=== PATIENT | male | born 2005 | race Caucasian/White ===

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

== ENCOUNTER 2024-04-30 23:03 | Emergency (ER) | payer BC, SELFPAY ==
[2024-04-30 23:33] VITALS: BP 128/66; PULSE 120; RESP 20; TEMP 36.6; O2SAT 100; BMI 22.4
[2024-04-30] MEDS: ONDANSETRON 2 MG/ML inj 4 MG IVP (23:52)
[2024-04-30] MEDS: 0.9 % SODIUM CHLORIDE 500 ML 500 ML IV (23:52)
[2024-04-30 23:56] LABS: Basophils Percent Auto 0.2 % (0.0-3.0); Eosinophils Percent Auto 0.7 % (0.0-7.0); Hematocrit 47.7 % (37.0-53.0); Hemoglobin* 16.1 gm/dL (13.5-17.5); Immature Granulocytes Pct Auto 0.6 %; Lymphocytes Percent Auto 9.9 % (20-44); Mean Corpuscular HGB Conc 34 gm/dL (32-36); Mean Corpuscular Hemoglobin 31 pg (26-34); Mean Corpuscular Volume 90 fL (80-100); Monocytes Percent Auto 8.6 % (0.0-11.0); Platelet Count* 260 K/uL (140-440); RDW Coefficient of Variation % 11.9 % (11.5-15.5); Red Blood Count 5.28 m/uL (4.30-5.90); White Blood Count* 17.36 K/uL (4.50-11.00)
[2024-04-30 23:57] LABS: Slide Review Reflex No
--- NOTE | 2024-05-01 00:04 | ED.GENADULT ---
HPI - General Adult General Chief complaint: Nausea/Vomiting Stated complaint: vomiting Time Seen by Provider: 04/30/24 23:53 Source: patient and family Mode of arrival: ambulatory Limitations: no limitations History of Present Illness HPI narrative: 18-year-old male presents to the emergency department with nausea vomiting and diarrhea for the past 3 hours. No fever. No injury or trauma. Does admit that he does get spills of recurrent vomiting. He does use marijuana 2-3 times daily. No prior history of pancreatitis, denies excessive alcohol intake. No prior abdominal surgeries. No hematemesis or bloody stools. Did not try any interventions at home prior to coming to ED. feels chilled. no abdominal pain. No other systemic symptoms. Reports that his past medical history is benign, no major long-term health problems. Denies use of any prescription medications. No allergies. 2-3 times daily THC user. ROS is notable for the GI symptoms as above only, otherwise denies times 12 systems. Related Data Home Medications ?Medication ?Instructions ?Recorded ?Confirmed No Known Home Medications 12/17/22 12/17/22 Allergies Allergy/AdvReac Type Severity Reaction Status Date / Time No Known Drug Allergies Allergy Verified 12/17/22 16:57 PFSH PFSH Social History Smoking Status: Never smoker Do you use any of these nicotine containing products: None Second hand tobacco smoke exposure: No How often do you have a drink containing alcohol: never AUDIT-C Alcohol total score: 0 Non-prescribed substance use: denies use service: No Exam Const: Vital Signs, click to edit/add: Vital Signs - 24 hr 04/30/24 23:33 Temperature 97.8 F Pulse Rate [Left P ulse Oximeter] 120 H Respiratory Rate 20 Blood Pressure [Ri ght Upper Arm] 128/66 Pulse Oximetry 100 Oxygen Delivery Me thod Room Air Documenting provider has reviewed patient's vital signs: yes Common normals: alert Other: Lips appear dry, slightly pale. Answers questions appropriately. HENMT: Common normals: normocephalic Head and scalp: normocephalic Face and sinus: normal facial exam Mouth: oral and palatal mucosa normal Throat: posterior oropharynx normal Eye: Common normals: conjunctivae normal General eye: normal appearance of both eyes Conjunctiva: conjunctiva(e) normal Neck & C-Spine: Common normals: no lymphadenopathy General: normal visual inspection Resp: Common normals: normal respiratory effort, no use of accessory muscles and clear to auscultation bilaterally Effort & inspection: able to speak in complete sentences Auscultation: clear to auscultation bilaterally Cardio: Common normals: regular rate, regular rhythm, S1 normal heart sound, S2 normal heart sound and no murmurs Rate: regular rate Rhythm: regular rhythm Heart sounds: S1 normal and S2 normal GI: Common normals: Normal to inspection, nondistended, normoactive bowel sounds present, soft to palpation, non-tender, no hepatosplenomegaly and no masses Palpation: soft and no hepatosplenomegaly Back & Pelvis: Common normals: thoracic and lumbar spine normal to inspection Extremity: Common normals: normal to inspection, normal capillary refill and no pedal edema Neuro: Sensorium/orientation: alert Speech: speech normal Motor exam: no movement abnormalities noted Psych: Common normals: thought process normal Appearance: grossly normal Thought process: normal thought process Attention/concentration: attention grossly intact Insight: insight good Judgement: judgment good Skin: Common normals: no rashes or lesions noted General skin exam: no rashes or lesions noted Course Course ED Course: 18-year-old male with nausea and vomiting. History of occasional severe vomiting episodes that are suspicious for underlying cyclic vomiting syndrome. He reports that this episode feels different and admittedly the diarrhea does make me question if he may have acute gastroenteritis rather than an episode of cyclic vomiting syndrome. Labs are ordered prior to the start of my shift. Will await these. Normal saline 500 mL bolus is ordered. I do not think this will quite be enough as he does appear dry. I will add 500 mL of lactated Ringer's after the normal saline is complete. No select had influenza swabs, olanzapine. Zofran has already been ordered. Await findings. Reevaluation(s) Time of Reevaluation #1: 01:37 Reevaluation #1: Patient sleeping and feeling much better after the olanzapine. Two bags of fluid given, Zofran and the olanzapine. He has not had any further vomiting. No retching. Patient and father counseled that it is difficult to tell if this is gastroenteritis or cyclic vomiting syndrome but it is very suspicious for cyclic vomiting syndrome. Rationale discussed. Discussed with the only true treatment for that condition is abstaining from THC for at least 8 weeks. If this is gastroenteritis, continue pushing fluids, prescription for Zofran given. Counseled that if this is not helpful it is more suspicious for cyclic vomiting syndrome. He can follow up with his primary care doctor to discuss other treatment options such as preventative olanzapine at night but none of these will be as effective as abstinence from THC. Alarm symptoms reviewed that would warrant ED presentation. Patient and father verbalized understanding and agreement. Written instructions provided. Vital Signs Vital signs: Initial Vital Signs Temperature 97.8 F 04/30/24 23:33 Temperature Source Temporal Artery Scan 04/30/24 23:33 Pulse Rate 120 H 04/30/24 23:33 Pulse Rhythm Regular 04/30/24 23:33 Respiratory Rate 20 04/30/24 23:33 Blood Pressure 128/66 04/30/24 23:33 Blood Pressure Mean 86 04/30/24 23:33 Blood Pressure Position Sitting 04/30/24 23:33 Pulse Oximetry 100 04/30/24 23:33 Oxygen Delivery Method Room Air 04/30/24 23:33 Vital Signs Temperature 97.8 F 04/30/24 23:33 Pulse Rate 120 H 04/30/24 23:33 Respiratory Rate 20 04/30/24 23:33 Blood Pressure 128/66 04/30/24 23:33 Pulse Oximetry 100 04/30/24 23:33 Oxygen Delivery Method Room Air 04/30/24 23:33 Temperature 97.8 F 04/30/24 23:33 Pulse Rate 120 H 04/30/24 23:33 Respiratory Rate 20 04/30/24 23:33 Blood Pressure 128/66 04/30/24 23:33 Pulse Oximetry 100 04/30/24 23:33 Oxygen Delivery Method Room Air 04/30/24 23:33 Medications Administered Medications: Discontinued Medications Generic Name Dose Route Start Last Admin Trade Name Freq PRN Reason Stop Dose Admin Sodium Chloride 500 mls @ 500 mls/hr 04/30/24 23:40 05/01/24 00:38 0.9 % Sodium Chloride 500 Ml IV 05/01/24 00:39 Infused .Q1H ONE Infusion Lactated Ringer's 500 mls @ 1,000 mls/hr 05/01/24 00:02 05/01/24 00:39 Lactated Ringers 500 Ml IV 05/01/24 00:31 Infused .Q30M ONE Infusion Olanzapine 5 mg 05/01/24 00:02 05/01/24 00:12 Olanzapine 5 Mg/Ml Inj IVP 05/01/24 00:03 5 mg ONCE ONE Administration Ondansetron HCl 4 mg 04/30/24 23:40 04/30/24 23:52 Ondansetron 2 Mg/Ml Inj IVP 04/30/24 23:41 4 mg ONCE ONE Administration Medical Decision Making Lab Data Lab results reviewed: Yes I reviewed the patient's lab results Lab results narrative: White blood cell count elevated but this certainly could be from cyclic vomiting as well. CRP is normal which is reassuring. Viral swabs negative, lipase, electrolytes and liver function normal. Labs: Lab Results 04/30/24 05/01/24 05/01/24 Range/Units 23:50 00:30 00:34 WBC 17.36 H (4.50-11.00) K/uL RBC 5.28 (4.30-5.90) m/uL Hgb 16.1 (13.5-17.5) gm/dL Hct 47.7 (37.0-53.0) % MCV 90 (80-100) fL MCH 31 (26-34) pg MCHC 34 (32-36) gm/dL RDW Coeff of Donna 11.9 (11.5-15.5) % Plt Count 260 (140-440) K/uL Neut % (Auto) 80.0 H (42.0-72.0) % Lymph % (Auto) 9.9 L (20-44) % Morrison % (Auto) 8.6 (0.0-11.0) % Eos % (Auto) 0.7 (0.0-7.0) % Baso % (Auto) 0.2 (0.0-3.0) % Neut # (Auto) 13.90 H (1.7-7.0) K/uL Lymph # (Auto) 1.70 (0.90-2.90) K/uL Morrison # (Auto) 1.50 H (0.00-0.90) K/UL Eos # (Auto) 0.10 (0.00-0.50) K/uL Baso # (Auto) 0.00 (0.00-0.30) K/uL Abs Immat Gran (auto) 0.10 (0.00-0.30) K/uL Imm/Tot Granulo (auto) 0.6 % Sodium 139 (135-149) mmol/L Potassium 4.0 (3.6-5.1) mmol/L Chloride 102 (96-114) mmol/L Carbon Dioxide 23 (20-32) mmol/L Anion Gap 14 (7-15) mEq/L BUN 15 (5-24) mg/dL Creatinine 0.8 (0.6-1.2) mg/dL Estimated Creat Clear 161.99 Estimated GFR 131 ml/min Glucose 172 H (60-115) mg/dL Calcium 9.8 (8.7-10.8) mg/dL Total Bilirubin 1.2 (0.1-1.5) mg/dL Direct Bilirubin 0.0 (0.0-0.5) mg/dL AST 30 (12-35) U/L ALT 14 (4-50) U/L Alkaline Phosphatase 69 (65-260) U/L C-Reactive Protein < 0.5 L (0.5-1.0) mg/dL Total Protein 7.6 (6.0-8.3) g/dL Albumin 5.1 H (3.3-5.0) g/dL Lipase 74 (23-300) U/L SARS-CoV-2 (PCR) Negative SARS-CoV-2 (Negative) Influenza Type A (PCR) Negative PCR FLU A (Negative) Influenza Type B (PCR) Negative PCR FLU B (Negative) RSV (PCR) Negative PCR RSV (Negative) Lab Acknowledgement Test Added Discharge Plan Discharge Clinical Impression: Gastroenteritis, Cyclic vomiting syndrome Patient Disposition: Home w/ Parent or Adult Condition: Improved Instructions: Cyclic Vomiting Syndrome (ED) Additional Instructions: As we discussed, it is difficult to tell if your symptoms are related to typical stomach flu also noticed gastroenteritis or a common condition known as cyclic vomiting syndrome. Cyclic vomiting syndrome is associated with regular chronic marijuana use. These episodes of severe vomiting, on unexpectedly and last several days. Your given IV fluids here in the ED as well as a combination of an anti nausea medicine and a 2nd medicine that is a mental health medication that seems to work very well specifically for cyclic vomiting syndrome. I am glad that this has stopped the retching. Hot showers are often helpful hand the episodes will last a few days at a time and do not seem to be triggered by anything in particular. They can be very frustrating. The only solution for cyclic vomiting syndrome is to eliminate all THC products from your life for at least 8 weeks. If this is a simple stomach flu, the prescription medication that I have given you called Miladis should be helpful. There are treatments for cyclic vomiting syndrome as well but none are nearly as effective as quitting THC. Please follow-up with her primary care provider if you continue to have episodes. The anti nausea medicine I provided can be taken up to every 6 hours as needed for nausea and vomiting. Remember that it will be much more effective for the stomach flu than it would be for cyclic vomiting syndrome. You should come to emergency department if you have been unable to hold down any liquids for 24 hours, bloody vomit, have high fever, or severe pain. Activity Level: Activity as Tolerated Discharge Diet: Regular Prescriptions: No Action No Known Home Medications Follow Up/Referrals: Provider,Not a Local [Primary Care Provider] - Stand Alone Forms: [employer] Info Instructions
[2024-05-01] MEDS: LACTATED RINGERS 500 ML 500 ML 1000 ML IV (00:11)
[2024-05-01] MEDS: OLANZapine 5 MG/ML inj IVP (00:12)
[2024-05-01 00:20] LABS: Albumin* 5.1 g/dL (3.3-5.0); Chloride* 102 mmol/L (96-114); Sodium* 139 mmol/L (135-149)
[2024-05-01 00:23] LABS: Alanine Aminotransferase* 14 U/L (4-50); Alkaline Phosphatase* 69 U/L (65-260); Anion Gap 14 mEq/L (7-15); Aspartate Amino Transferase* 30 U/L (12-35); Bilirubin Total* 1.2 mg/dL (0.1-1.5); Blood Urea Nitrogen* 15 mg/dL (5-24); Calcium* 9.8 mg/dL (8.7-10.8); Carbon Dioxide* 23 mmol/L (20-32); Creatinine* 0.8 mg/dL (0.6-1.2); Est. Creatinine Clearance* 161.99; Estimated Glomerular Filt Rate 131 ml/min; Glucose* 172 mg/dL (60-115); Lipase* 74 U/L (23-300); Total Protein* 7.6 g/dL (6.0-8.3)
[2024-05-01 01:14] LABS: C Reactive Protein* < 0.5 mg/dL (0.5-1.0)
[2024-05-01 01:23] LABS: PCR FLU A Negative PCR FLU A (Negative); PCR FLU B Negative PCR FLU B (Negative); PCR RSV Negative PCR RSV (Negative); SARS PCR* Negative SARS-CoV-2 (Negative)
[2024-05-01 01:45] VITALS: BP 130/68; PULSE 96; RESP 16; O2SAT 99
== END 2024-05-01 01:47 | disposition home or self-care (01) ==
PROVIDERS: Emergency Medicine Emergency Medical Services; Emergency Provider Family Medicine
DX: K52.9 Noninfective gastroenteritis and colitis, unspecified (principal); R11.15 Cyclical vomiting syndrome unrelated to migraine
CPT/HCPCS: 36415; 80048; 80076; 83690; 85025; 86140; 87631; 96374; 96375; 99284; J2405; J7030; J7120